=== PATIENT | male | born 1995 | race Two or more races ===

== ENCOUNTER 2021-01-25 17:59 | Emergency (ER) | payer MEDICAID ==
[~2021-01-25] VITALS: Ht 165.1 cm; Wt 90.0 kg
[~2021-01-25 17:59] MED LIST: ARIP10TA33 PO; CLON0.5T PO; DEXL60CA2 PO; LISI2.5T PO; OLAN10TA3 PO; OLAN5TAB3 PO; PALI117D SQ; TRAZ-175 PO
--- NOTE | 2021-01-25 18:31 | NUR ---
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
--- NOTE | 2021-01-25 18:37 | NUR ---
Pt reports chest pain, says his nails are weak and discolored and his forehead is swollen. Took 100mg benadryl at 1530.
--- NOTE | 2021-01-25 18:54 | NUR ---
Pt sleeping. No signs of distress.
--- NOTE | 2021-01-25 19:25 | NUR ---
Lab at bedside.
[2021-01-25 19:35] LABS: BASOPHILS % (AUTO) 1 % (0-1); EOSINOPHILS % (AUTO) 1 % (1-7); LYMPHOCYTES % (AUTO) 30 % (22-44); MEAN CORPUSCULAR HEMOGLOBIN 30.6 pg (27.5-34.5); MEAN CORPUSCULAR HGB CONC 34.4 g/dL (33.2-36.2); MEAN PLATELET VOLUME 6.9 fL (7.4-10.4); MONOCYTES % (AUTO) 12 % (2-9); NEUTROPHILS % (AUTO) 57 % (42-75); PLATELET COUNT 220 x10^3/uL (130-400); RED BLOOD COUNT 5.53 x10^6/uL (4.38-5.82); RED CELL DISTRIBUTION WIDTH 13.1 % (9.4-14.8)
[2021-01-25 19:37] LABS: ALBUMIN 4.2 g/dL (3.4-5.0); ANION GAP 6 mmol/L (5-15); CHLORIDE 107 mmol/L (98-107); CREATININE 0.94 mg/dL (0.7-1.3)
[2021-01-25 19:38] LABS: MD NO
[2021-01-25 19:47] LABS: T4 (THYROXINE) 10.7 mcg/dL (4.5-12.1); TROPONIN I < 0.015 ng/mL (0.000-0.045)
[2021-01-25 20:14] VITALS: BP 152/101
--- NOTE | 2021-01-25 20:26 | NUR ---
Pt agrees with and understands discharge plan and instructions. Pt calling [facility] for transport home.
== END 2021-01-25 20:28 | disposition home or self-care (01) ==
LOC: ED 20:20
DX: R07.2 Precordial pain (principal); R00.2 Palpitations; R00.0 Tachycardia, unspecified; R07.89 Other chest pain; R06.02 Shortness of breath; I10 Essential (primary) hypertension; G43.909 Migraine, unspecified, not intractable, without status migrainosus; Z86.73 Personal history of transient ischemic attack (TIA), and cerebral infarction without residual deficits
CPT/HCPCS: 36415; 71045; 80048; 80320; 82040; 84436; 84443; 84484; 85025; 85379; 93005; 99285; G0480